=== PATIENT | male | born 1995 | race Caucasian/White ===

== ENCOUNTER 2024-08-09 05:00 | Emergency (ER) | payer MEDICARE, BC ==
[~2024-08-09] VITALS: Ht 185.4 cm; Wt 97.7 kg
[2024-08-09] MEDS ORDERED: QUET25TA PO (06:04)
[2024-08-09 06:35] VITALS: BP 141/68; PULSE 84; RESP 20; TEMP 98; O2SAT 97
== END 2024-08-09 06:26 | disposition home or self-care (01) ==
LOC: ER 05:02
DX: F41.9 Anxiety disorder, unspecified (principal); F20.9 Schizophrenia, unspecified; F48.8 Other specified nonpsychotic mental disorders; R05.8 Other specified cough; Z79.899 Other long term (current) drug therapy
CPT/HCPCS: 99283

== ENCOUNTER 2024-11-14 11:30 | Emergency (ER) | payer BC, MEDICARE ==
[~2024-11-14] VITALS: Ht 182.9 cm; Wt 86.4 kg
[~2024-11-14 11:30] MED LIST: UNABLE TO OBTAIN
== END 2024-11-14 12:10 | disposition home or self-care (01) ==
LOC: ER 11:31
DX: R41.0 Disorientation, unspecified (principal); F20.9 Schizophrenia, unspecified; F41.9 Anxiety disorder, unspecified; Z20.822 Contact with and (suspected) exposure to COVID-19; Z88.2 Allergy status to sulfonamides
CPT/HCPCS: 99285

== ENCOUNTER 2025-08-13 16:15 | Emergency (ER) | payer MEDICARE ==
[~2025-08-13] VITALS: Ht 185.4 cm; Wt 96.5 kg
--- NOTE | 2025-08-13 17:11 | RADIOLOGY REPORT ---
Indication: pain x 3 days in left knee Technique: DI KNEE, COMP 4 VW MINKNEE CMPT Comparison: None FINDINGS/IMPRESSION: No radiographic evidence for acute fracture or dislocation. . Moderate suprapatellar effusion. [id number] tricompartmental degenerative joint disease. Enthesopathy at patellar tendon and quadriceps insertion upon the patella
[2025-08-13 20:19] VITALS: BP 125/80
[2025-08-13 21:02] LABS: MEAN PLATELET VOLUME 7.3 FL (7.4-10.4); RED CELL DISTRIBUTION WIDTH 13.7 % (11.5-14.5)
[2025-08-13 21:31] LABS: TOTAL CARBON DIOXIDE 26.5 MMOL/L (24-32)
[2025-08-13 21:44] LABS: CREATININE 1.13 MG/DL (0.60-1.10); eCRCL 106 ML/MIN; eGFR 75 ML/MIN
--- NOTE | 2025-08-13 22:52 | Physician Documentation ---
History of Present Illness ~ Chief Complaint: Knee Pain Stated Complaint: L KNEE PAIN Time Seen by MD: 16:30 Primary Medical Doctor: none HPI Patient is a very pleasant 30-year-old male that presents to the emergency department for evaluation of left knee pain x2 days. Patient reports that he hiked approximately 6 mild since that time his knee he has become very painful and tender he has difficulty bearing weight on that knee and ambulating. Patient denies fever chills nausea vomiting diarrhea at this time. He is not erythematous or warm to the touch at this time. Patient reports that he was seen earlier today by a care provider at the [facility] that informed him he would need to come to have aspiration of the intra-articular fluid to test for infection. No other symptoms reported at this time. Tetanus witin 5 years: No Medication Reconciliation Allergies: Coded Allergies: Sulfa (Sulfonamide Antibiotics) (Verified Allergy, Severe, seizures, 08/13/25) Miscellaneous Medications Unable to Obtain Medications (Unable to Obtain Medications), (Reported) Past Medical History Past Medical History: Hernia, Anxiety, Schizophrenia Past Surgical History: no surgical history, other Alcohol Use: None Drug Use: none Review of Systems ROS As stated above in the HPI, otherwise all systems are reviewed and negative. Physical Exam Vital Signs: Temperature: 98.4, Source: Temporal, Heart Rate: 72, Respiratory Rate: 18, BP: 125/80, Pulse Oximetry: 100, Weight: 96.500 Oxygen Flow Rate: 0 Physical Exam VITALS: Reviewed and as above. GENERAL: Alert, no apparent distress. HEENT: Normocephalic, atraumatic, PERRL, EOMI, dry mucosa, no erythema RESPIRATORY: Lungs clear, normal breath sounds, no respiratory distress. CHEST: No accessory muscle use, no retractions CV: Regular rate, rhythm, no edema, no murmur, No: JVD GI: Soft, non-tender, bowels sounds present, no rebound, guarding, or rigidity BACK: No CVA tenderness, or swelling MUSCULOSKELETAL No deformities, mild edema noted to the superior portion of the left knee, reduced range of motion during examination., negative varus valgus during examination, reports significant pain with manipulation during examination. SKIN: Warm and dry, no rash NEURO: Oriented x4, No motor or sensory deficit PSYCH: Normal mood and affect, no agitation Progress Results/Orders Results/Orders Orders - TAMMY CANO SOLE BLACKER Knee, Complete (08/13/25 16:30) Completed Orders - TAMMY CANO SOLE BLACKER Knee, Complete (08/13/25 16:30) Cbc/Diff (08/13/25 20:07) CMP (08/13/25 20:07) Vital Signs 08/13/25 08/13/25 16:16 20:19 Temp 98.4 98.4 Pulse 86 72 Resp 16 18 B/P (MAP) 134/73 125/80 (95) Pulse Ox 98 100 O2 Flow Rate 0 0 Laboratory Tests Test 08/13/25 20:40 White Blood Count 12.4 H Red Blood Count 4.65 L Hemoglobin 14.8 Hematocrit 43.5 Mean Corpuscular Volume 93.7 Mean Corpuscular Hemoglobin 31.8 H Mean Corpuscular Hemoglobin Concent 33.9 Red Cell Distribution Width 13.7 Platelet Count 287 Mean Platelet Volume 7.3 L Neutrophils (%) (Auto) 75.0 Lymphocytes (%) (Auto) 15.0 L Monocytes (%) (Auto) 8.2 Eosinophils (%) (Auto) 1.4 Basophils (%) (Auto) 0.4 Neutrophils # (Auto) 9.3 H Lymphocytes # (Auto) 1.9 Monocytes # (Auto) 1.0 H Eosinophils # (Auto) 0.2 Basophils # (Auto) 0.0 CBC Comment Sodium Level 140 Potassium Level 4.8 Chloride Level 105 Carbon Dioxide Level 26.5 Anion Gap 9 Blood Urea Nitrogen 18 Creatinine 1.13 H Estimated GFR/1.73 m2 75 BUN/Creatinine Ratio 15.9 Glucose Level 100 Calcium Level 9.3 Total Bilirubin 0.4 Aspartate Amino Transf (AST/SGOT) 25 Alanine Aminotransferase (ALT/SGPT) 27 Alkaline Phosphatase 125 H Total Protein 8.0 Albumin 4.2 Globulin 3.8 Albumin/Globulin Ratio 1.1 Chemistry Comments Medical Decision Making Additional information obtaine: other Findings 30-year-old male presented with acute onset left knee pain and difficulty bearing weight following a 6-mile hike, with symptoms persisting for 2 days. Denies fever, chills, GI symptoms, or other systemic complaints. Exam notable for pain and tenderness, moderate suprapatellar effusion on imaging, but no erythema, warmth, or instability. X-ray negative for fracture or other acute osseous pathology. Clinical assessment focused on excluding urgent etiologies such as fracture, septic arthritis, or significant internal derangement. No evidence of infection (afebrile, no warmth/erythema, normal labs), and imaging ruled out fracture. Given the patient's age, activity, and acute presentation, differential includes traumatic meniscal injury, patellofemoral pain, or acute exacerbation of underlying osteoarthritis, though OA is less likely in this age group. Meniscal injury is possible given mechanism and effusion, but absence of mechanical symptoms (locking, catching) and instability makes conservative management appropriate. Aspiration was discussed for diagnostic clarification, but deferred given low suspicion for infection and absence of concerning features. Evidence supports aspiration primarily for diagnostic uncertainty or suspected infection/crystal disease, with only temporary symptomatic benefit in traumatic effusions. Patient managed conservatively with knee immobilizer, crutches, and instructions for non-weight bearing as tolerated. Advised to follow up with primary care or return for worsening symptoms (fever, increased pain, erythema, inability to bear weight). Conservative management (rest, immobilization, gradual return to activity, physical therapy referral if symptoms persist) is first-line for most acute knee injuries in young adults. No indication for surgical referral at this time. Shared decision-making included education on red flag symptoms and expected course. Patient is safe for discharge with close outpatient follow-up. General Diff Dx:Considerations: Include: Abrasion, Contusion, Fracture, Hematoma, Laceration, Malunion, Neurovascular injury, Open fracture, Sprain, Ulcer, Other Knee Diff Dx:Considerations: Include: Abrasion, Arthritis, Contusion, DJD, Fracture-femur, Fracture-fibula, Fracture-patella, Fracture-tibia, Gout, Hematoma, Laceration, Meniscus injury, Neurovascular injury, Open fracture, Rheumatoid arthritis, Septic, Sprain, Sprain-MCL, Sprain-LCL, Sprain-ACL, Sprain-PCL, Other Ankle Diff Dx:Considerations: Include: Abrasion, Arthritis, Contusion, DJD, Fracture-metatarsal, Fracture-fibula, Fracture-tarsal, Fracture-tibia, Gout, Hematoma, Laceration, Malunion, Neurovascular injury, Nonunion, Open fracture, Osteomyelitis, Rheumatoid arthritis, Sprain, Septic, Ulcer, Other Foot Diff Dx:Considerations: Include: Abrasion, Arthritis, Cellulitis, Contusion, Dislocation, DJD, Fracture-metatarsal, Fracture-phalynx, Fracture- tarsal, Gout, Hematoma, Ingrown toenail, Laceration, Malunion, Neurovascular injury, Open fracture, Paronychia, Puncture, Rheumatoid, Sprain, Septic, Subungual hematoma, Ulcer, Other Toe Diff Dx:Considerations: Include: Abrasion, Cellulitis, Contusion, Dislocation, Felon, Fracture, Hematoma, Laceration, Neurovascular injury, Open fracture, Paronychia, Subungual hematoma, Other Departure Disposition: 01 HOME / SELF CARE / HOMELESS Impression: Primary Impression: Knee pain Additional Impression: Effusion of knee Condition: Stable Discharge Instructions: Acute Knee Pain, Adult, Knee Effusion Additional Instructions: You were seen today for left knee pain and swelling that started after hiking. Your x-rays and lab tests did not show any broken bones or signs of infection. You have a moderate amount of fluid in your knee (called an effusion), which can happen after an injury or overuse. What was done today: Your knee was placed in an immobilizer to help protect it and reduce pain. You were given crutches to help you avoid putting weight on your injured leg. No signs of infection or fracture were found. What to do at home: Rest your knee. Avoid activities that cause pain or require you to put weight on your injured leg. Use the knee immobilizer and crutches as instructed. Only bear weight as tolerated. Ice your knee for 15-20 minutes every 2-3 hours while awake for the first 48 hours to help with pain and swelling. Keep your leg elevated when sitting or lying down. Take pain medication as recommended by your care team. [id number] options like acetaminophen or ibuprofen may help, but follow dosing instructions and avoid if you have allergies or other medical reasons not to use them. Do not remove the immobilizer unless told by your doctor. Watch for these symptoms and return to the emergency department if you notice: Fever, chills, or feeling generally unwell Redness, warmth, or increasing swelling of the knee Severe pain that does not improve with rest or medication Inability to move your knee or leg, or new numbness/tingling Trouble walking even with crutches Follow-up: Schedule a visit with your primary care provider or an human resources operations specialist within the next week for further evaluation and to discuss next steps. If your symptoms get worse or you develop new symptoms, return to the emergency department. Recovery: Most knee injuries like yours improve with rest and time. Gradual return to activity and physical therapy may be recommended after your follow-up visit. If you have any questions or concerns, please contact your healthcare provider. Referrals: NO PRIMARY CARE PROVIDER (PCP) Education Educated: Patient Educated regarding: diagnosis, treatment, need for follow up Signature Scribe Signature: A Attestation: Scribed for Tammy Cano by [email or web address] Farias . 08/13/25 23:05 TAMMY CANO Aug 13, 2025 22:52
[2025-08-13 23:26] VITALS: PULSE 88; RESP 16; TEMP 98.4; O2SAT 99
== END 2025-08-13 23:27 | disposition home or self-care (01) ==
LOC: ER 16:16
DX: M25.562 Pain in left knee (principal); M25.462 Effusion, left knee; F20.9 Schizophrenia, unspecified; F41.9 Anxiety disorder, unspecified; Z88.2 Allergy status to sulfonamides
CPT/HCPCS: 29505; 36415; 73564; 80053; 85025; 99284; A6449; 29515